=== PATIENT | female | born 1985 | race Caucasian/White ===

== ENCOUNTER 2017-11-09 08:07 | Inpatient (IN) | payer SELFPAY ==
[~2017-11-09] VITALS: Ht 170.2 cm; Wt 71.8 kg
[~2017-11-09 08:07] MED LIST: ALBUAER2 INH; AZITTAB PO; BCPILLS PO; HYCUDL5 PO
[2017-11-09] MEDS ORDERED: LACTATED RINGER'S 1000ML 1,000 ML IV PRN (08:40)
[2017-11-09] MEDS ORDERED: DINOPROSTONE 10 MG INSERT PV ONE (09:00)
[2017-11-09] MEDS ORDERED: PENICILLIN G POTASSIUM IV 6 MU in DEXTROSE 5% 250ML 250 ML IV SCH (09:00)
[2017-11-09 09:04] LABS: HEMATOCRIT 36.9 % (37-47); HEMOGLOBIN 12.7 g/dL (12.0-16.0); MEAN CELL VOLUME 86.6 fL (80-100); MEAN CORPUSCULAR HEMOGLOBIN 29.8 pg (25-34); MEAN CORPUSCULAR HGB CONC 34.4 g/dl (32-36); MEAN PLATELET VOLUME 10.7 fL (7.4-10.4); PLATELET COUNT 191 K/uL (130-400); RED CELL DISTRIBUTION WIDTH CV 12.8 % (11.5-14.5); RED CELL DISTRIBUTION WIDTH SD 40.7 fL (36.4-46.3); WHITE BLOOD COUNT 6.78 K/uL (4.8-10.8)
[2017-11-09] MEDS ORDERED: LACTATED RINGER'S 1000ML 500 ML IV PRN ×2 (09:11→15:46)
[2017-11-09] MEDS ORDERED: OXYTOCIN 30 UNITS/500ML NSS IV PRN ×2 (09:15→20:30)
[2017-11-09 09:27] VITALS: Ht 170.2 cm; Wt 71.8 kg
[2017-11-09 09:28] LABS: ALBUMIN 2.5 gm/dl (3.4-5.0); ALT/SGPT 18 U/L (12-78); AST/SGOT 19 U/L (15-37); BLOOD UREA NITROGEN 12 mg/dl (7-18); CALCIUM 8.6 mg/dl (8.5-10.1); CARBON DIOXIDE 24 mmol/L (21-32); GLUCOSE 121 mg/dl (70-99); POTASSIUM 3.5 mmol/L (3.5-5.1); SODIUM 137 mmol/L (136-145)
[2017-11-09 09:30] LABS: ALKALINE PHOSPHATASE 157 U/L (45-117); TOTAL PROTEIN 6.1 gm/dl (6.4-8.2)
[2017-11-09] MEDS: LACTATED RINGER'S 1000ML 1,000 ML IV SCH ×2 (09:39→16:42)
[2017-11-09] MEDS ORDERED: PRENTAB26 PO (10:05)
[2017-11-09] MEDS ORDERED: BUPR8SUB19 SL (10:05)
[2017-11-09] MEDS: PENICILLIN G POTASSIUM IV 3 MU in DEXTROSE 5% 100ML 100 ML IV PRN ×2 (13:06→17:07)
[2017-11-09] MEDS ORDERED: BUPIVACAINE 0.25% 30 ML VIAL ONE (15:12)
[2017-11-09] MEDS ORDERED: EpHEDrine SULFATE INJ 50 MG/ML AMP ONE (15:12)
[2017-11-09] MEDS ORDERED: FENTANYL CITRATE INJ 50 MCG/1 ML 2 ML VIAL ONE (15:13)
[2017-11-09] MEDS ORDERED: FENTANYL 2MCG/ML ROPIV 1.25MG/ML 100ML BAG ONE (15:14)
[2017-11-09] MEDS ORDERED: NALOXONE HCL INJ 1 MG in SODIUM CHLORIDE 0.9% 1000ML 1,000 ML IV PRN (15:46)
[2017-11-09] MEDS ORDERED: ONDANSETRON INJ 2 MG/ML 2 ML VIAL IV PRN (16:00)
[2017-11-09] MEDS ORDERED: DiphenhydrAMINE HCL 50 MG/ML VIAL IV PRN (16:00)
[2017-11-09] MEDS ORDERED: FENTANYL 2MCG/ML ROPIV 1.25MG/ML 100ML BAG EPI PRN (16:00)
[2017-11-09] MEDS ORDERED: EpHEDrine SULFATE INJ 50 MG/ML AMP IV PRN (16:00)
[2017-11-09] MEDS ORDERED: NALBUPHINE HCL INJ 10 MG/ML AMP IV PRN (16:00)
[2017-11-09] MEDS ORDERED: PROMETHAZINE HCL INJ 6.25 MG in SODIUM CHLORIDE 0.9% 50ML 50 ML IV PRN (16:00)
[2017-11-09] MEDS ORDERED: NALOXONE HCL INJ 0.4 MG/1 ML VIAL/CARP IV PRN (16:00)
[2017-11-09] MEDS ORDERED: LACTATED RINGER'S 1000ML 1,000 ML IV SCH (20:27)
[2017-11-09] MEDS ORDERED: MEASLES, MUMPS & RUBELLA VIRUS VIAL SQ. ONE (20:30)
[2017-11-09] MEDS ORDERED: DIPHTHERIA/TETANUS/PERTUSSIS 0.5 ML SYR/VIAL IM. ONE (20:30)
[2017-11-09] MEDS ORDERED: HYDROCORTISONE ACETATE 25 MG SUPP PR PRN (20:30)
[2017-11-09] MEDS ORDERED: OXYCODONE/ACETAMINOPHEN 5-325 TAB PO PRN (20:30)
[2017-11-09] MEDS ORDERED: LANOLIN OINT EXT PRN (20:30)
[2017-11-09] MEDS ORDERED: BENZOCAINE 20% AER SPR 82.5 GM CAN EXT PRN (20:30)
[2017-11-09] MEDS ORDERED: SUPERCREAM 0.870 % 15GM JAR EXT PRN (20:30)
--- NOTE | 2017-11-09 21:13 | Anesthesia Procedure Note ---
Anesthesia Epidural Removal Nt Date & Time November 09, 2017 at 21:13 Vital Signs Pain Intensity: 8.0 Notes Mental Status: alert / awake / arousable, participated in evaluation Nausea / Vomiting: adequately controlled Pain: adequately controlled Airway Patency, RR, SpO2: stable & adequate BP & HR: stable & adequate Hydration State: stable & adequate Neuraxial Anesthesia: was administered, sensory block is resolving Anesthetic Complications: no major complications apparent, pt satisfied with anesthetic care Epidural: removed without complications, with tip intact
[2017-11-09] MEDS: IBUPROFEN 600 MG TAB PO PRN (21:27)
--- NOTE | 2017-11-09 22:09 | DELIVERY SUMMARY ---
DATE OF OPERATION: 11/09/2017 TIME OF DELIVERY OF BABY: 1946 p.m. TIME OF DELIVERY OF PLACENTA: 2011 p.m. DETAILS OF DELIVERY: The patient was found to be fully dilated and desired to push. She pushed for about half an hour and delivered the head without difficulty. Shoulders were delivered with minimal traction and baby was handed off to the mother, where mouth and nose were suctioned. Cord was clamped x2 and cut at 1 minute delay. Cord blood was obtained. It was a 3-vessel cord. Vagina and perineum were checked for lacerations. There was a second degree perineal laceration at the posterior fourchette. It was confirmed to be second degree by rectal exam. Excellent sphincter tone was noted. Gloves were changed. There was another second degree vaginal laceration on the right vaginal wall and hymen extending into the right labia. Those were repaired with 2-0 Vicryl in a running locked fashion and there was a oozing on the right vaginal laceration site in the middle. It was repaired with [id number] stitches x2. Excellent hemostasis was achieved. Placenta was found to be in the vagina, delivered spontaneously, it was intact and complete. The lower segment was cleared off all clots and debris. Fundus was firm. EBL was 250 ml. Vagina was checked again and there was oozing on the right vaginal repair and it was repaired with 2-0 Vicryl in a running locked fashion and then there was a small left labial laceration. It was repaired with 3-0 Vicryl in a SH needle. Excellent hemostasis was achieved. Rectal exam was repeated, good sphincter tone was noted, and no sutures were found. Mom and baby tolerated the procedure well. Sponge, lap, needle, and instrument counts were correct x3. Baby was a viable female . Apgars 9/9, weight is 3810 gr. No complications happened and I was present during whole procedure. I attest to the content of the Intraoperative Record and any orders documented therein. Any exceptions are noted below. MTDD
[2017-11-09 23:15] VITALS: BP 116/78; PULSE 93; TEMP 36.7
[2017-11-09] MEDS: ACETAMINOPHEN 325 MG TAB PO PRN (23:26)
[2017-11-10] MEDS: IBUPROFEN 600 MG TAB PO PRN ×3 (01:22→15:47)
[2017-11-10 04:45] VITALS: BP 127/80; PULSE 69; TEMP 36.5
[2017-11-10] MEDS: DOCUSATE SODIUM 100 MG CAP PO SCH ×2 (07:49→20:09)
[2017-11-10] MEDS: FERROUS SULFATE 325 MG TAB PO SCH (07:49)
[2017-11-10] MEDS: BUPRENORPHINE HCL 8 MG SUBL SL SCH (07:49)
[2017-11-10] MEDS: PRENATAL VITAMIN TAB PO SCH (07:49)
[2017-11-10 08:35] LABS: HEMOGLOBIN 9.9 g/dL (12.0-16.0)
[2017-11-10] MEDS: ACETAMINOPHEN 325 MG TAB PO PRN (09:21)
--- NOTE | 2017-11-10 09:29 | OB/GYN Progress Note ---
MEDICAL IMAGING TECH Progress Note Date of Service November 10, 2017. Subjective conversation w/ patient, physical exam Ambulation: ambulating normally Voiding: no voiding problems Passing Gas: Yes Diet Tolerance: Regular Diet Lochia: Moderate Feeding Type: Breast Feeding Review of Systems Constitutional: No fever, No chills, No sweats, No weight loss, No weakness, No fatigue, No problem reported Respiratory: No cough, No sputum, No wheezing, No shortness of breath, No dyspnea on exertion, No dyspnea at rest, No hemoptysis, No problem reported Cardiac: No chest pain, No orthopnea, No PND, No edema, No claudication, No palpitations, No problem reported Breast: No see HPI, No breast lump, No change in shape, No nipple discharge, No breast pain, No problem reported Abdomen: No pain, No nausea, No vomiting, No diarrhea, No constipation, No GI bleeding, No problem reported Female : No see HPI, No dysuria, No urinary frequency, No hematuria, No incontinence, No abnormal vaginal bleeding, No vaginal discharge, No problem reported Objective Vital Signs Date Time Temp Pulse Resp B/P (MAP) Pulse Ox O2 Delivery O2 Flow Rate FiO2 11/10/17 04:45 36.5 69 18 127/80 (96) Room Air 11/09/17 23:15 Room Air 11/09/17 23:15 36.7 93 18 116/78 (91) Room Air Physical Exam General Appearance: WELL-APPEARING, WD/WN, NO APPARENT DISTRESS Respiratory/Chest: chest non-tender, lungs clear, normal breath sounds Cardiovascular: regular rate, rhythm, no edema, no gallop Abdomen: normal bowel sounds, non tender, soft Fundus: Firm Extremities: normal range of motion, non-tender, normal inspection Laboratory Results Last 24 Hours Test 11/10/17 08:11 Hemoglobin 9.9 g/dL Hematocrit 29.0 % Assessment and Plan Day Number: 2 Continue Routine Care: Vd day #1 pt doing well anticipate disch tomorrow
[2017-11-10 10:07] VITALS: BP 110/75; PULSE 65; TEMP 36.7; O2SAT 97
[2017-11-10 11:30] VITALS: BP 136/76; PULSE 74; TEMP 36.8; O2SAT 97
[2017-11-10 15:45] VITALS: BP 121/76; PULSE 85; TEMP 36.5; O2SAT 97
[2017-11-10 19:30] VITALS: BP 123/74; PULSE 82; TEMP 36.6; O2SAT 97
[2017-11-10] MEDS ORDERED: BISACODYL 5 MG TABEC PO SCH (20:00)
[2017-11-10 23:20] VITALS: BP 130/82; PULSE 77; TEMP 36.7; O2SAT 98
[2017-11-11] MEDS: IBUPROFEN 600 MG TAB PO PRN (05:42)
[2017-11-11] MEDS ORDERED: BISACODYL 10 MG SUPP PR PRN (07:00)
[2017-11-11 07:05] LABS: HEMATOCRIT 27.6 % (37-47); HEMOGLOBIN 9.3 g/dL (12.0-16.0); MEAN CELL VOLUME 87.9 fL (80-100); MEAN CORPUSCULAR HEMOGLOBIN 29.6 pg (25-34); MEAN CORPUSCULAR HGB CONC 33.7 g/dl (32-36); MEAN PLATELET VOLUME 9.5 fL (7.4-10.4); PLATELET COUNT 186 K/uL (130-400); RED CELL DISTRIBUTION WIDTH CV 13.3 % (11.5-14.5); RED CELL DISTRIBUTION WIDTH SD 42.4 fL (36.4-46.3)
[2017-11-11 07:40] VITALS: BP 119/73; PULSE 86; TEMP 36.4
[2017-11-11] MEDS: DOCUSATE SODIUM 100 MG CAP PO SCH ×2 (08:21→19:37)
[2017-11-11] MEDS: BUPRENORPHINE HCL 8 MG SUBL SL SCH (08:21)
[2017-11-11] MEDS: PRENATAL VITAMIN TAB PO SCH (08:21)
[2017-11-11] MEDS: FERROUS SULFATE 325 MG TAB PO SCH (08:22)
--- NOTE | 2017-11-11 10:03 | Discharge Instructions ---
Discharge Instructions Date of Service November 11, 2017. Admission Reason for Admission: Induction Discharge Discharge Diagnosis / Problem: Vaginal Delivery Discharge Goals Goal(s): Routine recovery after delivery Medications Continue Dispensed Medications: supercream, dermaplast, tucks, lansinoh Activity Recommendations Activity Limitations: per Instructions/Follow-up section . Instructions / Follow-Up Instructions / Follow-Up ACTIVITY RECOMMENDATIONS: * Gradual return to full activity over the next 2-3 weeks. * No lifting - nothing heavier than baby over the next 2-3 weeks. * Do not engage in vigorous exercise, sexual activity or sports until cleared by your physician. * Do not drive or operate any motorized equipment until cleared by your physician. * You may shower/bathe daily. BREAST CARE: If you are not breast feeding: * Wear a supportive bra 24 hours a day for one to two weeks. * Avoid stimulating your breasts and nipples as much as possible during the first few weeks after delivery. * When taking a shower, have the warm water hit your back, not breasts. * When your breasts feel full, apply ice packs. Usually three to four times a day helps ease the discomfort. * Take a mild pain medication (Tylenol/Motrin) when you are uncomfortable. If breast feeding: * Use breast milk to lubricate nipples. Lansinoh cream may be used for sore nipples. You do not need to remove cream prior to breast feeding. If using a different brand of cream, check the label for directions regarding removal of cream prior to nursing. * Wear a supportive bra. * If having problems with breasts or breast feeding, call a rewards consultant or your health care provider. EPISIOTOMY CARE: After delivery, if you have an episiotomy (stitches), the following steps will ease discomfort and aid healing. * For the first 24 hours after delivery, place ice packs next to your episiotomy to help reduce swelling. * After the first 24 hour-period, sitz baths, either portable or in the tub, are suggested. A shower with a shower arm sprayed over the episiotomy may be comforting. * Margie care should be done after each voiding and bowel movement. Squirt warm water from a plastic bottle over the perineum (region of the body between the anus and urinary opening) and pat dry. * Use Dermoplast to ease discomfort. Shake container. [place] directly over the episiotomy. * Place a Tucks on a clean sanitary pad next to your episiotomy. OVER THE COUNTER MEDICATION: * For discomfort or pain, you may use Acetaminophen (Tylenol), Ibuprofen (Advil ), or Naproxen (Aleve) following the package directions. * For constipation you may use Colace following the package directions. SPECIAL CARE INSTRUCTIONS: When you are discharged from the hospital, it is important for you to follow the instructions listed below: * During the first week at home, you should be able to care for yourself and your baby. In addition, the usual light household activities are encouraged. * Limit your activities to the way you feel. Do not try to clean the house or move furniture. Be sensible. * If you actively engage in sports and have done so up until the time of your delivery, you may resume these activities as soon as you feel able. This may take up to one month or even longer. Use good judgment. * Continue to take your vitamins for at least six weeks after the of your baby. * Your diet need not be limited unless you were on a special diet before your delivery. Breast-feeding mothers need around 2500 calories per day and at least 64-80 ounces of fluid per day (8 to 10 glasses). * You should eat foods from the four major food groups. Crash diets or fad diets are to be avoided. Eating lean meats, fresh fruits and vegetables, low-fat dairy products, high fiber foods and a regular exercise program, will help you get back to your pre- weight without putting your health at risk. * Constipation is sometimes a problem after delivery. Take a mild laxative as needed. If breast feeding, Milk of Magnesia is acceptable to use. You may use a suppository or Fleets enema if no episiotomy. * A daily shower or tub bath is suggested. Be sure to thoroughly and gently dry the perineum. * A bloody vaginal discharge will usually continue until around four weeks post . A small amount of bleeding may continue for as long as six weeks. Vaginal discharge changes from the bright red bleeding after delivery to pink then brownish and finally yellowish-pink before becoming white and disappearing. * Bleeding may increase with activity. Your first period may come in 4-8 weeks. If you are breast feeding, your period may be delayed even longer. * Wynona (sex) can begin whenever both you and your partner feel comfortable and do not have any form of genital infection. It is recommended that you wait until after your return appointment and discuss with your physician. If you have questions, please talk to your health care practitioner. A condom should be used to prevent infection and . * Foreplay, gentle intercourse and lubrication is very important the first several times to prevent pain. A water-based lubricant such as K-Y jelly or Astroglide may be used. * Tampons may be used six weeks after delivery. * Douching should be avoided for 6 weeks after delivery. * If you have RH negative blood and your baby is RH positive, you will receive RHOGAM by injection prior to discharge. The nurse will give you a card to keep with you that has the date and place that you received RHOGAM after delivery. * During your care, you had a Rubella screen done to check for the presence of rubella antibodies in your blood. If your test was negative, you will receive a Rubella vaccine prior to discharge. This vaccine may cause a fever, soreness at the injection site and flu-like symptoms. If these symptoms persist, notify your health care practitioner. is not advised for three months after a Rubella vaccine. There is a higher chance of having a baby with defects if conceived within three months of getting the vaccine. * If you were discharged 24 hours from delivery or before 48 hours: Visiting nurses will come to your home 48 hours after discharge to assess you and your baby. The visiting nurse will meet with you while you are in the hospital to arrange a time and get directions to your home. * Verbalizes understanding of car seat law as reviewed with patient nursing. * Car Seat hand-out given and reviewed with patient by nursing. * Shaken baby information reviewed with patient by nursing. Call you doctor if: * Heavy bleeding (saturating several pads an hour) or passing clots the size of your fist. * A fever >101 degrees F (38.3 degrees C) on two occasions four hours apart and/or chills. * Unusual pain in the pelvic or vaginal areas. * "Baby Blues" lasting longer than two weeks. If you have any questions or concerns, call your health care practitioner at . FOLLOW-UP VISIT: * Please call the office at to schedule a 6 week examination. It is important you keep this appointment. * It is important for you to make arrangements for either yearly or twice yearly check-ups thereafter. Current Hospital Diet Patient's current hospital diet: Regular OB Diet Discharge Diet Recommended Diet: Regular OB Diet Pending Studies Studies pending at discharge: no Medical Emergencies . Who to Call and When: Medical Emergencies: If at any time you feel your situation is an emergency, please call 911 immediately. . Non-Emergent Contact Non-Emergency issues call your: Primary Care Provider, Inside [employer] Executive . . "Provider Documentation" section prepared by Coleman Steele. .
--- NOTE | 2017-11-11 10:05 | OB/GYN Progress Note ---
PERSONAL SUPPORT WORKER Progress Note Date of Service November 11, 2017. Subjective conversation w/ patient, physical exam Ambulation: ambulating normally Voiding: no voiding problems Passing Gas: Yes Diet Tolerance: Regular Diet Lochia: Small Feeding Type: Breast Feeding Pain: 0 Notes: Doing well, no concerns. Pain well controlled. Tolerating regular diet. Ambulating without difficulty. Would like to be discharged today. Objective Vital Signs Date Time Temp Pulse Resp B/P (MAP) Pulse Ox O2 Delivery O2 Flow Rate FiO2 11/11/17 07:40 Room Air 11/11/17 07:40 36.4 86 18 119/73 (88) Room Air 11/10/17 23:20 Room Air 11/10/17 23:20 36.7 77 16 130/82 (98) 98 Room Air 11/10/17 19:30 36.6 82 16 123/74 (90) 97 Room Air 11/10/17 15:45 36.5 85 16 121/76 (91) 97 Room Air 11/10/17 15:45 97 Room Air 11/10/17 11:30 36.8 74 13 136/76 (96) 97 Room Air 11/10/17 10:07 36.7 65 14 110/75 (87) 97 Room Air Physical Exam General Appearance: WELL-APPEARING Respiratory/Chest: chest non-tender, lungs clear Cardiovascular: regular rate, rhythm Abdomen: normal bowel sounds, soft Fundus: Firm Extremities: normal range of motion, non-tender, no calf tenderness Laboratory Results Last 24 Hours Test 11/11/17 06:43 White Blood Count 9.50 K/uL Red Blood Count 3.14 M/uL Hemoglobin 9.3 g/dL Hematocrit 27.6 % Mean Corpuscular Volume 87.9 fL Mean Corpuscular Hemoglobin 29.6 pg Mean Corpuscular Hemoglobin Concent 33.7 g/dl RDW Standard Deviation 42.4 fL RDW Coefficient of Variation 13.3 % Platelet Count 186 K/uL Mean Platelet Volume 9.5 fL Assessment and Plan Day Number: 2 Continue Routine Care: -D/C home today -F/U in 6 weeks.
[2017-11-11 15:40] VITALS: BP 121/72; PULSE 82; TEMP 36.7
[2017-11-11 18:04] VITALS: BP_DIAS 72; PULSE 82; TEMP 36.7
== END 2017-11-11 19:50 | disposition home or self-care (01) | DRG 775 ==
LOC: C.LD 08:07 → C.OBG 22:40
PROVIDERS: ADMIT Obstetrics & Gynecology; ATTEND Obstetrics & Gynecology
PROC: 0KQM0ZZ Repair Perineum Muscle, Open Approach (ICD-10-PCS; principal; 2017-11-09)
PROC: 10E0XZZ Delivery of Products of Conception, External Approach (ICD-10-PCS; principal; 2017-11-09)
PROC: 3E0P7VZ Introduction of Hormone into Female Reproductive, Via Natural or Artificial Opening (ICD-10-PCS; principal; 2017-11-09)
DX: O48.0 Post-term pregnancy (principal); O99.824 Streptococcus B carrier state complicating childbirth; O70.1 Second degree perineal laceration during delivery; Z3A.40 40 weeks gestation of pregnancy; Z37.0 Single live birth; Z79.891 Long term (current) use of opiate analgesic

== ENCOUNTER 2020-09-01 07:56 | Inpatient (IN) ==
[2020-09-01] MEDS ORDERED: OXYTOCIN 30 UNITS/500 ML BAG IV PRN ×3 (08:33→19:52)
[2020-09-01 08:53] LABS: Hematocrit (blood only) 39.2 % (37-47); Hemoglobin 13.4 g/dL (12.0-16.0); Mean Corpuscular Hemoglobin 30.9 pg (25-34); Mean Corpuscular Hgb Conc 34.2 g/dL (32-36); Mean Corpuscular Volume 90.5 fL (80-100); Mean Platelet Volume 10.4 fL (7.4-10.4); Platelet Count 216 K/uL (130-400); RDW Coefficient of Variation 12.8 % (11.5-14.5); RDW Standard Deviation 42.4 fL (36.4-46.3); Red Blood Count 4.33 M/uL (4.2-5.4); White Blood Count 8.49 K/uL (4.8-10.8)
--- NOTE | 2020-09-01 08:54 | Progress Note ---
Date of Service September 01, 2020 Assessment & Plan Admission and Anticipated Discharge Date Admission Date: September 01, 2020 Subjective Pt here for labor induction hx of oligo. in this - resolved as per last sono hx of drug use on Subutex FHR; CAT1 Ctx 2-3 VE; /-3 discussed pitocin use because of ctx frequency Results & Data ([facility]) Vital Signs (Past 12 Hours) Vital Signs Temp Pulse Resp BP 09/01/20 08:22 80 130/79 09/01/20 08:08 77 138/78 09/01/20 08:02 36.5 C 20 09/01/20 07:57 78 131/96
[2020-09-01] MEDS ORDERED: PENICILLIN G POTASSIUM 6 MU in DEXTROSE 5% 250 ML IV ONE (09:00)
[2020-09-01] MEDS: LACTATED RINGER'S 1,000 ML IV PRN ×2 (09:06→18:26)
[2020-09-01] MEDS: PENICILLIN G POTASSIUM 3 MU in DEXTROSE 5% 100 ML IV PRN ×2 (13:45→18:02)
--- NOTE | 2020-09-01 17:23 | Progress Note ---
Date of Service September 01, 2020 Assessment & Plan Admission and Anticipated Discharge Date Admission Date: September 01, 2020 Subjective Pt doing well CTx ;1-3 mild intensity Pit; 12MU FHR; CAT1 VE; 3-4/50/-2 AROM- clear with amnio hook Results & Data ([facility]) Vital Signs (Past 12 Hours) Vital Signs Temp Pulse Resp BP 09/01/20 17:12 66 118/65 09/01/20 16:16 88 122/65 09/01/20 15:13 71 130/72 09/01/20 14:06 60 119/73 09/01/20 13:00 61 20 126/58 L 09/01/20 12:08 36.8 C 62 20 112/59 L 09/01/20 11:06 65 110/62 09/01/20 10:04 93 H 111/68 09/01/20 08:53 75 154/84 H 09/01/20 08:22 80 130/79 09/01/20 08:08 77 138/78 09/01/20 08:02 36.5 C 20 09/01/20 07:57 78 131/96
[2020-09-01] MEDS ORDERED: BUPIVACAINE 0.25% 30 ML VIAL ONE (17:45)
[2020-09-01] MEDS ORDERED: ePHEDrine sulfate 50 MG/ML AMP ONE (17:45)
[2020-09-01] MEDS ORDERED: SODIUM CHLORIDE 0.9% INJ 10 ML VIAL ONE (17:45)
[2020-09-01] MEDS ORDERED: fentaNYL citrate 100 MCG/2 ML VIAL ONE (17:45)
[2020-09-01] MEDS ORDERED: fentaNYL 2MCG/ML ROPIVACAINE 1.25MG/ML 100 ML BAG EPI ONE (17:46)
--- NOTE | 2020-09-01 18:59 | Anesthesiology Consultation ---
Date of Service September 01, 2020 Assessment & Plan (1) Encounter for pre-operative examination: Chart Review Chart Review: Patient NOT seen in Pre Admission Testing and Acceptable Risk for Labor Epidural Consults Requested none ASA ASA2 Proposed Anesthesia Anesthesia Type: Labor Epidural Risk / Benefits Reviewed With: PT / POA / Parent / Guardian, Accepts Plan and Informed Consent Obtained History Height/Weight Height: 5 ft 7 in Weight: 68.492 kg Allergies Allergy/AdvReac Type Severity Reaction Status Date / Time No Known Allergies Allergy Mild NONE Verified 09/01/20 08:19 Medications Home Medications Medication Instructions Recorded Confirmed Last Taken buprenorphine HCl [Subutex] 8 mg SUBLINGUAL DAILY 09/01/20 09/01/20 09/01/20 08:00 prenat.vits,tiffany,jgw-[id number]-[id number] 1 tab PO DAILY 09/01/20 09/01/20 08/31/20 21:00 [ Vitamin] Active Medications Generic Name Dose Route Start Last Admin Trade Name Freq PRN Reason Stop Dose Admin Penicillin G Potassium 3 mu/ 106 mls @ 100 mls/hr 09/01/20 08:33 09/01/20 18:02 Dextrose IV 09/11/20 08:32 100 mls/hr Q4H PRN Administration Give until delivery Lactated Ringer's 1,000 mls @ 125 mls/hr 09/01/20 08:33 09/01/20 18:26 Lr IV 09/03/20 08:32 999 mls/hr .Q8H PRN Administration L&D Protocol Protocol Oxytocin 30 units in 500 mls @ 12 mls/hr 09/01/20 09:53 09/01/20 18:56 Pitocin IV 09/03/20 09:52 0.72 units/hr .Q24H PRN 12 mls/hr Labor Induction/Augmentation Titration Protocol 0.72 UNITS/HR NPO Date Last Intake of Fluids: 09/01/20 Time Last Intake of Fluids: 18:00 Date Last Intake of Solids: 09/01/20 Time Last Intake of Solids: 06:00 Exercise / Class Metabolic Activity II 4-5 Yardwork/Stairs/Walk up hill Past Family History Family History Father Prostate cancer Bladder cancer Past Surgical History Surgical History History of dental surgery Past Anesthesia History No Hx of Anesthesia Complications and No Family Hx of Anesthesia Complications History of PONV No Hx of PONV and No Hx of Motion Sickness Social History Smoking Status: Never smoker Hx Alcohol Use: No Hx Substance Use: Yes substance use type: heroin Last Used Substance Other:: 2014 Physical Exam Vital Signs Last Vital Signs Temp 36.5 C 09/01/20 17:20 Pulse 110 H 09/01/20 18:55 Resp 20 09/01/20 17:20 BP 113/57 L 09/01/20 18:55 Pulse Ox 80 L 09/01/20 18:54 ENMT Mouth: no dentition abnormality Thyromental Distance: > or= 3.5 Finger Breadths Mallampati Class: II Neck normal visual inspection Respiratory normal respiratory effort Auscultation: lungs clear to auscultation bilaterally Cardiovascular Rate/Rhythm: regular rate and regular rhythm Psychiatric Orientation: alert Testing Laboratory Results 09/01/20 08:41
[2020-09-01] MEDS ORDERED: diphenhydrAMINE 50 MG/ML VIAL IV PRN (19:00)
[2020-09-01] MEDS ORDERED: ONDANSETRON INJ 2 MG/ML 2 ML VIAL IV PRN (19:00)
[2020-09-01] MEDS ORDERED: ePHEDrine sulfate 50 MG/ML AMP IV PRN (19:00)
[2020-09-01] MEDS ORDERED: PROMETHAZINE HCL 6.25 MG in SODIUM CHLORIDE 0.9% 50 ML IV PRN (19:00)
[2020-09-01] MEDS ORDERED: NALOXONE HCL 1 MG in SODIUM CHLORIDE 0.9% 1000ML 1,000 ML IV PRN (19:00)
[2020-09-01] MEDS ORDERED: fentaNYL 2MCG/ML ROPIVACAINE 1.25MG/ML 100 ML BAG EPI PRN (19:00)
[2020-09-01] MEDS ORDERED: NALOXONE HCL 0.4 MG/1 ML VIAL/CARP IV PRN (19:00)
[2020-09-01] MEDS ORDERED: miSOPROStoL 200 MCG TAB ONE (19:12)
[2020-09-01] MEDS ORDERED: METHYLERGONOVINE MALEATE 0.2 MG/ML AMP ONE (19:13)
[2020-09-01] MEDS ORDERED: LIDOCAINE HCL 1% 20 ML VIAL ONE ×2 (19:16→19:28)
[2020-09-01] MEDS ORDERED: BENZOCAINE 20% AER SPR 82.5 GM CAN EXT PRN (19:52)
[2020-09-01] MEDS ORDERED: bisacodyL 10 MG SUPP PR PRN (19:52)
[2020-09-01] MEDS ORDERED: METHYLERGONOVINE MALEATE 0.2 MG/ML AMP IM ONE (19:52)
[2020-09-01] MEDS ORDERED: ACETAMINOPHEN 325 MG TAB PO PRN (19:52)
[2020-09-01] MEDS ORDERED: HYDROCORTISONE ACETATE 25 MG SUPP PR PRN (19:52)
[2020-09-01] MEDS ORDERED: miSOPROStoL 200 MCG TAB PR ONE (19:52)
[2020-09-01] MEDS ORDERED: DIPHTHERIA/TETANUS/PERTUSSIS 0.5 ML SYR/VIAL IM ONE (19:52)
[2020-09-01] MEDS ORDERED: SUPERCREAM 0.870% 15 GM JAR EXT PRN (19:52)
[2020-09-01] MEDS ORDERED: LACTATED RINGER'S 1,000 ML IV SCH (20:00)
--- NOTE | 2020-09-01 20:12 | Anesthesia Procedure Note ---
Date of Service September 01, 2020 Anesthesia Post Epidural Note Vital Signs Vital Signs: Temp Pulse Resp BP Pulse Ox 37.0 C 105 H 16 125/78 100 09/01/20 19:41 09/01/20 19:58 09/01/20 19:41 09/01/20 19:58 09/01/20 19:34 Pain Intensity Bilateral Abdomen: Pain Intensity: 0 Notes Mental Status: alert / awake / arousable Nausea / Vomiting: adequately controlled Pain: adequately controlled Airway Patency, RR, SpO2: stable & adequate BP & HR: stable & adequate Hydration State: stable & adequate Neuraxial Anesthesia: was administered and sensory block is resolving Anesthetic Complications: no major complications apparent and Pt Satisfied with anesthetic care Epidural: Removed without complications and With tip intact
--- NOTE | 2020-09-01 20:31 | Delivery Summary ---
DATE OF OPERATION: 09/01/2020 The patient delivered a live infant in left occiput anterior presentation. There was no nuchal cord. was delivered, placed on mother's abdomen. Cord was clamped and cut after 1 minute. Details of infant's weight and Apgars in the pediatric record. Cord blood was obtained. Placenta was spontaneously delivered. Inspection of the placenta shows a normal placenta with 3-vessel cord. Inspection of the perineum showed a second-degree midline laceration, which was repaired with 2-0 and 3-0 Vicryl in layers. Rectal exam post repair showed good sphincter tone, no sutures are palpated in the rectum. Estimated blood loss is ____ mL. Baby and mother are doing well in recovery. All instruments were removed from the vagina and accounted for x2 including sponges, needles and retractors. I attest to the content of the Intraoperative Record and any orders documented therein. Any exception s are noted below.
[2020-09-02] MEDS: IBUPROFEN 600 MG TAB PO PRN ×2 (00:54→09:50)
[2020-09-02] MEDS: DOCUSATE SODIUM 100 MG CAP PO SCH ×2 (04:03→08:23)
[2020-09-02 06:38] LABS: Hematocrit (blood only) 38.1 % (37-47); Hemoglobin 13.1 g/dL (12.0-16.0); Mean Corpuscular Hgb Conc 34.4 g/dL (32-36); Mean Corpuscular Volume 90.1 fL (80-100); Mean Platelet Volume 10.7 fL (7.4-10.4); Platelet Count 221 K/uL (130-400); RDW Coefficient of Variation 12.9 % (11.5-14.5); RDW Standard Deviation 42.5 fL (36.4-46.3); Red Blood Count 4.23 M/uL (4.2-5.4); White Blood Count 14.32 K/uL (4.8-10.8)
[2020-09-02] MEDS ORDERED: PRENATAL VITAMIN 1 TAB PO SCH (08:00)
[2020-09-02] MEDS ORDERED: FERROUS SULFATE 325 MG TAB PO SCH (08:00)
--- NOTE | 2020-09-02 08:08 | Obstetrical Progress Note ---
Date of Service September 02, 2020 Assessment & Plan Admission and Anticipated Discharge Date Admission Date: September 01, 2020 Subjective Patient is seen and examined. She feels well, no complaints. Ambulating without dizziness Voiding without difficulty Tolerating regular diet with out N&V Bleeding is minimal No fever/ chills/ CP/ SOB/ N&V/ Leg pain Planning to breast feed. Baby was transferred to [facility], NICU. She desires to be discharged today. Vital Signs Temp Pulse Pulse Resp BP BP 09/02/20 04:00 37.0 C 109 H 18 120/70 09/01/20 22:45 37.4 C 111 H 18 121/74 09/01/20 21:30 36.8 C 121 H 20 129/58 L 09/01/20 21:28 115 H 137/68 09/01/20 21:13 114 H 18 129/67 09/01/20 20:58 100 H 123/73 09/01/20 20:43 105 H 18 129/80 09/01/20 20:28 105 H 18 129/82 09/01/20 20:13 102 H 18 121/73 Repeat pulse: 60 bpm PE: General: Alert, orientedx3, NAD Abd: soft, NT, fundus firm, below Umbilicus Perineum intact, Lochia rubra minimal Ext; NT, no edema AP: 35 yo s/p , ppd# 1 VSS Afebrile doing well Continue routine care All questions were answered Desires d/c today to be able to see her baby Discussed when to call D/C home , f/u in office Results & Data ([facility]) Vital Signs (Past 12 Hours) Vital Signs Temp Pulse Pulse Resp BP BP 09/02/20 04:00 37.0 C 109 H 18 120/70 09/01/20 22:45 37.4 C 111 H 18 121/74 09/01/20 21:30 36.8 C 121 H 20 129/58 L 09/01/20 21:28 115 H 137/68 09/01/20 21:13 114 H 18 129/67 09/01/20 20:58 100 H 123/73 09/01/20 20:43 105 H 18 129/80 09/01/20 20:28 105 H 18 129/82 09/01/20 20:13 102 H 18 121/73
[2020-09-02] MEDS ORDERED: buprenorphine HCL 8 MG SUBL SL SCH (09:00)
[2020-09-02] MEDS ORDERED: bisacodyL 5 MG TABEC PO SCH (20:00)
--- NOTE | 2020-09-09 10:41 | Coding Query ---
CODING QUERY To promote full compliance with coding requirements relating to patient care, provider participation is requested in all cases of machine applicator cementer uncertainty. Please assist us with the question(s) below: Coding Question(s): Please clarify the reason for induction of labor. Physician's Response(s): 1) Oligohydramnios 2) history of drug use, on Subutex Thank you Dennise Ochoa Principal Diagnosis: "that condition established after study, to be chiefly responsible for occasioning the admission of the patient to the hospital for care." Co-Existing Principal Diagnosis: "when two or more diagnoses equally meet the criteria for principal diagnosis as determined by the circumstances of admission, diagnostic work up, and/or therapy provided, and the Alphabetic Index, Tabular List, or another coding guideline does not provide sequencing direction, any one of the diagnoses may be sequenced first." "When the physician has documented what appears to be a current diagnosis in the body of the record, but has not included the diagnosis in the final diagnostic statement, the physician should be asked whether the diagnosis should be added." ([facility] 2 QTR90. p3-4) OTILIA
== END 2020-09-02 11:05 | disposition home or self-care (01) | DRG 806 ==
LOC: 4S1 07:56 → 4S2 22:00